=== PATIENT | female | born 1970 | race American Indian/Alaskan Native ===

== ENCOUNTER 2017-04-22 10:08 | Day surgery (SDC) | payer BC ==
[2017-04-16 09:56] VITALS: BMI 21.4
--- NOTE | 2017-04-22 10:35 | CP.SDSHP ---
Same Day Surgery H & P - History Proposed Procedure: Cat scan guided lung biopsy Pre-Op Diagnosis: Breast Ca - Previous Medical/Surgical History Misc: Other (LMP 03/28/17) Pain: 0. No Pain Comments: Pt has history of breast ca .Cat scan showed multiple lung lesions.She was referred for biopsy. Previous Surgical History: L breast Lumpectomy(2008). Tubal ligation(2005 or 2006) - Allergies Allergies: Allergies No Known Allergies Allergy (Verified 04/16/17 09:55) - Physical Exam General Appearance: pt is in no clinical distress Mental Status: Alert & Oriented x3 Neuro: WNL Heart: WNL Lungs: Other (diminished breath sounds,occasional scattered wheezes) - {Optional Preform as Required} Breast: Other (S/P L lumpectomy,non healed wound at that site.R breast is normal ) Abdomen: WNL - Impression Impression: Breast Ca with lung mets - Date & Time Date: 04/22/17 Time: 10:58 Short Stay Discharge - Short Stay Discharge Admitting Diagnosis/Reason for Visit: BREAST CA C50.919 Disposition: HOME/ ROUTINE Referrals: Santiago King MD [Primary Care Provider] -
[2017-04-22 10:45] LABS: BASO # 0.03 K/mm3 (0.0-2.0); BASO % 0.5 % (0.0-3.0); EOS # 0.1 (0.0-0.7); EOS % 1.1 % (1.5-5.0); GRAN # 2.98 (1.4-6.5); GRAN % 53.4 % (50.0-68.0); HEMOGLOBIN 12.7 gm/dL (12.0-16.0); LYMPH # 2.1 (1.2-3.4); LYMPH % 36.9 % (22.0-35.0); MEAN CELL VOLUME 89.3 fL (80.0-105.0); MEAN CORPUSCULAR HEMOGLOBIN 29.6 pg (25.0-35.0); MEAN CORPUSCULAR HGB CONC 33.2 g/dl (31.0-37.0); MEAN PLATELET VOLUME 10.8 fl (7.0-11.0); MONO # 0.5 (0.1-0.6); MONO % 8.1 % (1.0-6.0); PLATELET COUNT 295 10^3/uL (120.0-450.0); RBC 4.29 10^6/uL (3.5-6.1); RED CELL DISTRIBUTION WIDTH 12.7 % (11.5-14.5); WHITE BLOOD COUNT 5.6 10^3/ul (4.5-11.0)
[2017-04-22 10:53] LABS: BLOOD UREA NITROGEN 15 mg/dL (7-21); CALCIUM 10.1 mg/dL (8.4-10.5); GFR AFRICAN-AMERICAN > 60; GFR NON-AFRICAN AMERICAN > 60
[2017-04-22 10:55] LABS: INR 0.98 (0.93-1.08); PARTIAL THROMBOPLASTIN TIME 25.9 Seconds (23.7-30.8); PROTHROMBIN TIME 10.6 Seconds (9.9-11.8)
[2017-04-22] MEDS ORDERED: Midazolam 2 MG/2 ML VIAL ONE (11:57)
[2017-04-22] MEDS ORDERED: Oxycodone/Acetaminophen 5/325 mg Tab PO PRN (12:25)
[2017-04-22] MEDS ORDERED: Sodium Chloride 0.45% 1,000 ML IV SCH (12:30)
[2017-04-22 13:10] VITALS: O2SAT 99
[2017-04-22 13:26] VITALS: BP 113/66; PULSE 94; RESP 18; TEMP 98.4
--- NOTE | 2017-04-22 14:23 | CT ---
PROCEDURE: CT guided right middle lobe lung biopsy. HISTORY: Metastatic breast CA. Innumerable pulmonary nodules. PHYSICIAN(S): Cornelius Kelly MD. TECHNIQUE: The relative risks and indications of the procedure were explained to the patient and consent obtained. The patient was placed supine on the CT scanner and preliminary images through the mid lungs obtained. Conscious sedation and monitoring were provided throughout the procedure by a nurse. innumerable coalescing nodules are seen in both lungs. A 4.2 cm opacity in the right middle lobe was selected for biopsy.. A right anterior approach was selected and the area prepped and draped in the usual sterile fashion. 1% Xylocaine was used to anesthetize the skin and soft tissues. A 17-gauge guiding needle was advanced into the 4.2 cm right middle lobe opacity. Its position was confirmed with CT. Using coaxial technique, multiple core biopsies were obtained. The postprocedure images show no evidence of large pneumothorax or significant hemorrhage. IMPRESSION: 1. CT-guided right middle lobe lung biopsy as described above.
--- NOTE | 2017-04-22 15:51 | RAD ---
HISTORY: rt lung bx COMPARISON: Earlier CT biopsy FINDINGS: LUNGS: Multiple metastatic lesions. No pneumothorax PLEURA: No significant pleural effusion identified, no pneumothorax apparent. CARDIOVASCULAR: Normal. OSSEOUS STRUCTURES: No significant abnormalities. VISUALIZED UPPER ABDOMEN: Normal. OTHER FINDINGS: None. IMPRESSION: No evidence of pneumothorax
== END 2017-04-22 16:38 | disposition home or self-care (01) ==
LOC: SDS 10:08
PROVIDERS: ATTEND Radiology Vascular & Interventional Radiology
DX: R91.8 Other nonspecific abnormal finding of lung field (principal)
CPT/HCPCS: 32405; 36415; 71010; 77012; 80048; 84703; 85025; 85610; 85730; 88305; J2250; J2405; J3010; J7030